=== PATIENT | female | born 1965 ===

== ENCOUNTER 2018-11-14 07:02 | Day surgery (SDC) | payer OTHER ==
--- NOTE | 2018-11-14 08:57 | CP.SDSHP ---
Same Day Surgery H & P - History Proposed Procedure: EGD Pre-Op Diagnosis: SEE NOTES - Previous Medical/Surgical History Misc: Other Pain: 4.Moderate Pain - Allergies Allergies: Allergies No Known Allergies Allergy (Verified 11/14/18 07:25) - Physical Exam General Appearance: N Vital Signs: Vital Signs 11/14/18 11/14/18 07:30 07:39 Temperature 98.2 F Pulse Rate 80 80 Respiratory 20 Rate Blood Pressure 124/67 O2 Sat by Pulse 98 Oximetry Mental Status: Alert & Oriented x3 Neuro: WNL Heart: WNL Lungs: WNL GI: Other - {Optional Preform as Required} Breast: WNL Abdomen: Other Rectal: Other Integument: WNL : WNL Ortho: WNL ENT: WNL - Impression Pt. Evaluated Today:Candidate for Anesthesia & Procedure: Yes - Date & Time Time: 08:56 Short Stay Discharge - Short Stay Discharge Admitting Diagnosis/Reason for Visit: DYSPEPSIA Disposition: HOME/ ROUTINE
[2018-11-14] MEDS ORDERED: Propofol 10 mg/ml Inj (20 ML) ONE (08:58)
[2018-11-14] MEDS ORDERED: Lactated Ringer's 1,000 ML IV ONE (09:00)
[2018-11-14] MEDS ORDERED: Belladonna-Phenobarbital PO ONE (09:30)
[2018-11-14 10:16] VITALS: O2SAT 97
[2018-11-14 10:37] VITALS: BP 95/53; PULSE 78; RESP 14; TEMP 98
== END 2018-11-14 10:30 | disposition home or self-care (01) ==
LOC: C.ENDO 07:02
PROVIDERS: ATTEND Specialist
DX: K31.7 Polyp of stomach and duodenum (principal)
CPT/HCPCS: 43239; 84703; 88305; 88342; J2704; J2765; J7120